=== PATIENT | female | born 1990 | race Hispanic/Latino ===

== ENCOUNTER 2018-01-19 15:58 | Emergency (ER) | payer MEDICAID ==
[~2018-01-19 15:58] MED LIST: ESOM40CA PO; TOPI50CA6 PO
== END 2018-01-19 16:34 | disposition home or self-care (01) ==
LOC: EDH 15:58
DX: S29.011A Strain of muscle and tendon of front wall of thorax, initial encounter (principal); Z72.0 Tobacco use; V49.49XA Driver injured in collision with other motor vehicles in traffic accident, initial encounter; Y93.89 Activity, other specified; Y92.89 Other specified places as the place of occurrence of the external cause; Y99.8 Other external cause status

== ENCOUNTER → 2023-12-26 | Outpatient (CLI) | payer BC, MEDICAID | END | disposition home or self-care (01) | LOC: RAH 11:26 | PROVIDERS: ATTEND Internal Medicine Cardiovascular Disease | DX: E04.1 Nontoxic single thyroid nodule (principal) | CPT/HCPCS: 76536 ==

== ENCOUNTER → 2024-01-22 | Outpatient (CLI) | payer BC, MEDICAID | END | disposition home or self-care (01) | LOC: SHCH 11:23 | PROVIDERS: ATTEND Internal Medicine Cardiovascular Disease | DX: I51.7 Cardiomegaly (principal) | CPT/HCPCS: 93306 ==

== ENCOUNTER → 2024-11-04 | Outpatient (CLI) | payer BC, MEDICAID ==
[~2024-11-04] MED LIST changes: -TOPI50CA6 PO; +TOPI50CA7 PO
--- NOTE | 2024-11-04 10:37 | HMCIMG ---
THYROID ULTRASOUND History: Thyromegaly Comparison: None Findings: Enlarged homogeneous thyroid lobes seen bilaterally. No nodules or masses. The right lobe measures 5. 2 x 2 by 2 cm. The left lobe measures 5.7 x 1.9 x 1.7 cm. The isthmus measures 1 mm. No fluid collections are seen. IMPRESSION: Enlarged thyroid, homogeneous without masses or nodules.
== END | disposition home or self-care (01) ==
LOC: RAH 09:58
PROVIDERS: ATTEND Family Medicine
DX: E04.9 Nontoxic goiter, unspecified (principal)
CPT/HCPCS: 76536